=== PATIENT | female | born 1950 | race Caucasian/White ===

== ENCOUNTER → 2016-10-06 | Outpatient (REF) | payer OTHER ==
[2016-10-06 12:05] LABS: BASO # 0.1 K/mm3 (0.0-0.2); BASO % 1.8 % (0.0-1.0); EOS # 0.2 K/mm3 (0.0-0.50); EOS % 3.1 % (0.0-3.0); LARGE UNSTAINED CELL # 0.1 K/mm3 (0.0-0.4); LARGE UNSTAINED CELL % 1.4 % (0.0-4.0); LYMPH # 2.9 K/mm3 (1.5-4.5); LYMPH % 37.8 % (24.0-44.0); MEAN CORPUSCULAR HEMOGLOBIN 29.9 pg (27.0-33.0); MEAN CORPUSCULAR HGB CONC 32.7 g/dl (32.0-36.5); MEAN CORPUSCULAR VOLUME 91.3 fl (80.0-96.0); MONO # 0.3 K/mm3 (0.0-0.8); MONO % 4.5 % (0.0-5.0); NEUTROPHILS # 3.8 K/mm3 (1.8-7.7); NEUTROPHILS % 51.3 % (36.0-66.0); PLATELET COUNT, AUTOMATED 247 k/mm3 (150-450); RED CELL DISTRIBUTION WIDTH 13.6 % (11.5-14.5); WHITE BLOOD COUNT 7.4 K/mm3 (4.0-10.0)
[2016-10-06 12:37] LABS: ANION GAP 8 MEQ/L (8-16); BLOOD UREA NITROGEN 13 MG/DL (7-18); CARBON DIOXIDE LEVEL 30 MEQ/L (21-32); CHLORIDE LEVEL 104 MEQ/L (98-107); CHOLESTEROL LEVEL 245 MG/DL (<200); CREATININE FOR GFR 0.66 MG/DL (0.55-1.02); GLOMERULAR FILTRATION RATE > 60.0 (>45); GLUCOSE, FASTING 79 MG/DL (80-110); POTASSIUM SERUM 4.3 MEQ/L (3.5-5.1); SODIUM LEVEL 142 MEQ/L (136-145); TRIGLYCERIDES LEVEL 141 MG/DL (<150)
== END ==
LOC: M SFHCPLAZ 09:25
PROVIDERS: ATTEND Internal Medicine
DX: E78.2 Mixed hyperlipidemia (principal); I10 Essential (primary) hypertension; E03.9 Hypothyroidism, unspecified; R89.9 Unspecified abnormal finding in specimens from other organs, systems and tissues

== ENCOUNTER → 2016-10-11 | Outpatient (CLI) | payer OTHER ==
--- NOTE | 2016-10-11 16:17 | REP ---
MRI study of the abdomen without and with IV gadolinium: History: Attention liver, right lobe liver lesion. Comparison MRI study 06/23/2015. Findings felt to be most compatible with focal nodular hyperplasia. MR technique: Axial and coronal T1 and T2-weighted scans were obtained. Sequences include spin echo, turbo spin-echo, in and out of phase, and dynamically acquired sequential post gadolinium enhanced 2-D gradient echo fat sat images. There is a 2.8 x 2.1 x 2.5 cm subtle T2 hyperintense, T1 hypointense lesion in the posterior segment right lobe of the liver which is entirely unchanged in size or appearance from the 06/23/2015 prior study. Sequential post gadolinium enhanced images demonstrate some heterogeneous peripheral enhancement on the immediate and 30-second post contrast images in this lesion. There is delayed enhancement of the central portion of the lesion which has low signal intensity on precontrast images consistent with enhancement and a central scar. This has not changed its appearance. There are multiple stable hepatic cysts as well. No new hepatic lesion is seen. No renal abnormality is observed. No pancreatic or splenic lesion is seen. Impression: Stable right lobe hepatic lesion with delayed enhancement in the central scar compatible with focal nodular hyperplasia. Stable hepatic cysts also noted. Signed by Edgar Garcia MD 10/11/2016 04:26 P
== END ==
LOC: M RAD 13:37
PROVIDERS: ATTEND Internal Medicine
DX: M79.645 Pain in left finger(s) (principal); K76.89 Other specified diseases of liver

== ENCOUNTER → 2016-11-21 | Outpatient (CLI) | payer OTHER ==
--- NOTE | 2016-11-23 11:33 | DEXA ---
AP SPINE L1 - L4 0.809 -3.1 -1.2 LT FEMUR TOTAL 1.020 0.1 1.7 RT FEMUR TOTAL 1.047 0.3 1.9 TOTAL BODY TOTAL OTHER DUAL FEMUR FRAX* ASSESSMENT Risk factors: Secondary osteoporosis (premature menopause). 10 year probability of fracture Major osteoporotic fracture 8.7 % Hip fracture 0.8 % COMMENTS: Normal bone densitometry of the right hip. There is low bone density of the left hip. There is osteoporosis of the spine. FOLLOW-UP: Recommendation for the next bone density exam: 2 years. DONN
== END ==
LOC: M WHC 09:46
PROVIDERS: ATTEND Internal Medicine
DX: M81.0 Age-related osteoporosis without current pathological fracture (principal); M85.9 Disorder of bone density and structure, unspecified

== ENCOUNTER → 2017-01-05 | Outpatient (REF) | payer OTHER | LOC: M SFHCPLAZ 15:57 | PROVIDERS: ATTEND Family Medicine | DX: M79.642 Pain in left hand (principal); Z13.1 Encounter for screening for diabetes mellitus; Z53.8 Procedure and treatment not carried out for other reasons ==

== ENCOUNTER → 2017-01-06 | Outpatient (REF) | payer OTHER ==
[2017-01-06 14:17] LABS: ANION GAP 5 MEQ/L (8-16); BLOOD UREA NITROGEN 18 MG/DL (7-18); CALCIUM LEVEL 8.5 MG/DL (8.8-10.2); CARBON DIOXIDE LEVEL 31 MEQ/L (21-32); CHLORIDE LEVEL 103 MEQ/L (98-107); CREATININE FOR GFR 0.59 MG/DL (0.55-1.02); GLOMERULAR FILTRATION RATE > 60.0 (>45); GLUCOSE, FASTING 74 MG/DL (80-110); SODIUM LEVEL 139 MEQ/L (136-145)
== END ==
LOC: M SFHCPLAZ 10:33
PROVIDERS: ATTEND Family Medicine
DX: M79.642 Pain in left hand (principal); R06.02 Shortness of breath; Z13.1 Encounter for screening for diabetes mellitus

== ENCOUNTER → 2017-01-27 | Outpatient (REF) | payer OTHER | LOC: M SFHCPLAZ 12:05 | PROVIDERS: ATTEND Family Medicine | DX: L57.0 Actinic keratosis (principal) ==

== ENCOUNTER → 2017-02-15 | Outpatient (REF) | payer OTHER | LOC: M SFHCPLAZ 11:33 | PROVIDERS: ATTEND Family Medicine | DX: E03.9 Hypothyroidism, unspecified (principal); M81.0 Age-related osteoporosis without current pathological fracture ==